=== PATIENT | male | born 1995 ===

== ENCOUNTER 2018-03-17 23:00 | Emergency (ER) | payer OTHER ==
--- NOTE | 2018-03-18 00:35 | ED PDOC ---
Upper Extremity Pain/Injury Time Seen by Provider: 03/18/18 00:02 Chief Complaint (Nursing): Finger,Hand,&Wrist Chief Complaint (Provider): Finger Injury History Per: Patient History/Exam Limitations: no limitations Onset/Duration Of Symptoms: Days (x7) Current Symptoms Are (Timing): Still Present Additional Complaint(s): 22 year old male presented to ED for evaluation of injury on the right second digit. 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 PMD: Dr. Bonita Franks Past Medical History Reviewed: Historical Data, Nursing Documentation, Vital Signs Vital Signs: Last Vital Signs Temp 98 F 03/17/18 23:26 Pulse 78 03/17/18 23:26 Resp 18 03/17/18 23:26 BP 133/84 03/17/18 23:26 Pulse Ox 99 03/17/18 23:26 - Medical History PMH: No Chronic Diseases - Surgical History Surgical History: No Surg Hx - Family History Family History: States: Unknown Family Hx - Social History Current smoker - smoking cessation education provided: No Alcohol: Social Drugs: Denies - Home Medications Home Medications: Ambulatory Orders Medication Instructions Recorded Ibuprofen [Motrin Tab] 600 mg PO Q6 PRN #24 tab 03/18/18 - Allergies Allergies/Adverse Reactions: Allergies Allergy/AdvReac Type Severity Reaction Status Date / Time No Known Allergies Allergy Verified 03/18/18 00:09 Review of Systems ROS Statement: Except As Marked, All Systems Reviewed And Found Negative Musculoskeletal: Positive for: Other (Right 2nd digit finger injury) Physical Exam - Reviewed Nursing Documentation Reviewed: Yes Vital Signs Reviewed: Yes - Physical Exam Comments: GENERAL APPEARANCE: Patient is awake, alert, oriented x 3, in no acute distress. Resting comfortably. SKIN: Warm, dry; (-) cyanosis. NECK: Supple, FROM ENT: Mucus membranes moist. HEART AND CARDIOVASCULAR: (-) irregularity; (-) murmur, (-) gallop. CHEST AND RESPIRATORY: (-) rales, (-) rhonchi, (-) wheezes; breath sounds equal. Speaking in full sentences, respirations even and nonlabored. NEURO AND PSYCH: Mental status as above. Gait steady, speech clear. RIGHT 2ND PROXIMAL PHALANX: (+) minimal tenderness (+) full ROM of digit, (+) cap refill intact, (-) ecchymosis, (-) skin break (-) swelling. Remainder of digits of right hand nontender with FROM. WRIST: (+) Full ROM (-) Tenderness, ( -) swelling, (-) deformity. (-) snuff-box tenderness. (-) distal NV deficit. - ECG O2 Sat by Pulse Oximetry: 99 (RA) Pulse Ox Interpretation: Normal Medical Decision Making Medical Decision Making: Initial Impression: Finger injury Initial Plan: Ibuprofen 600mg PO X-ray right hand Re-evalaution 00:20 X-ray No acute findings (-) fracture (-) dislocation as read by Reggie MARQUES Aluminum finger splint placed on finger. Upon reevaluation, patient is neurovascularly intact after placement. 00:45 On re-evaluation, patient reports improvement of symptoms. On exam, patient remains AAOx3, in no acute distress. Lungs clear to auscultation, cardiac RRR, repeat neuro exam shows no focal findings. VSS, stable for discharge. Lab/Diagnostic results d/w the patient in great detail. Diagnosis of acute finger pain/sprain d/w the patient. Based on history, exam and diagnostic results, plan will be for outpatient follow up. Patient instructed to follow-up with pmd / referral provided / the clinic in 1- 2 days without fail. Advised to take medication as prescribed. Return to the emergency room at any time for any new or worsening symptoms. Patient states he fully agrees with and understands discharge instructions. States that he agrees with the plan and disposition. Verbalized and repeated discharge instructions and plan. I have given the patient opportunity to ask any additional questions. Scribe Attestation: Documented by Paul Núñez acting as a scribe for Jazzmine LARA. Provider Scribe Attestation: All medical record entries made by the Scribe were at my direction and personally dictated by me. I have reviewed the chart and agree that the record accurately reflects my personal performance of the history, physical exam, medical decision making, and the department course for this patient. I have also personally directed, reviewed, and agree with the discharge instructions and disposition. Disposition - Clinical Impression Clinical Impression: Finger sprain - Patient ED Disposition Is Patient to be Admitted: No Counseled Patient/Family Regarding: Studies Performed, Diagnosis, Need For Followup, Rx Given - Disposition Referrals: Nathan Heard MD [Medical Doctor] - Disposition: Routine/Home Disposition Time: 00:48 Condition: STABLE Additional Instructions: FOLLOW UP WITH PMD/HAND SPECIALIST FOR FURTHER EVALUATION WITHIN THE WEEK. REFERRAL PROVIDED FOR HAND SPECIALIST. RETURN TO ED WITH ANY NEW OR WORSENING SYMPTOMS. TAKE IBUPROFEN NEEDED FOR DISCOMFORT. Prescriptions: Ibuprofen [Motrin Tab] 600 mg PO Q6 PRN #24 tab PRN Reason: Pain, Moderate (4-7) Instructions: Finger Sprain (DC), Common Finger Injuries (DC) Forms: [facility] (Mexican) Print Language: KENYAN - POA Present On Arrival: None
[2018-03-18 01:00] VITALS: BP 126/78; PULSE 79; RESP 17; TEMP 98.1
[2018-03-18 04:01] VITALS: O2SAT 99
--- NOTE | 2018-03-18 09:05 | RAD ---
PROCEDURE: Right Hand Radiographs. HISTORY: crush injury COMPARISON: None. FINDINGS: BONES: No acute fracture. JOINTS: Unremarkable. SOFT TISSUES: Normal. OTHER FINDINGS: None. IMPRESSION: No demonstrated fracture or dislocation.
== END 2018-03-18 00:55 | disposition home or self-care (01) ==
LOC: H.ER 23:00
DX: S63.611A Unspecified sprain of left index finger, initial encounter (principal); W23.0XXA Caught, crushed, jammed, or pinched between moving objects, initial encounter; Y99.0 Civilian activity done for income or pay

== ENCOUNTER 2018-04-01 04:30 | Emergency (ER) | payer OTHER ==
[2018-04-01] MEDS ORDERED: Sodium Chloride 0.9% 1,000 ML IV STA (05:00)
--- NOTE | 2018-04-01 05:03 | ED PDOC ---
HPI: Headache Time Seen by Provider: 04/01/18 04:47 Chief Complaint (Nursing): Headache Chief Complaint (Provider): headache History Per: Patient History/Exam Limitations: no limitations Onset/Duration Of Symptoms: Days (1) Current Symptoms Are (Timing): Still Present Quality: "Pain" Associated Symptoms: Photophobia, Nausea, Vomiting Additional Complaint(s): 22 y/o male presents for evaluation of headache x 1 day. Associated photophobia , nausea and vomiting x 2. Patient states headache located on right side, behind eye and ear. Denies fever, dizziness, extremity numbness/weakness, vision changes, nasal congestion, neck/back pain, chest pain, shortness of breath, palpitations. Past Medical History Reviewed: Historical Data, Nursing Documentation, Vital Signs Vital Signs: Last Vital Signs Temp 98.0 F 04/01/18 04:38 Pulse 104 H 04/01/18 04:38 Resp 17 04/01/18 04:38 BP 139/76 04/01/18 04:38 Pulse Ox 99 04/01/18 04:38 - Medical History PMH: No Chronic Diseases - Surgical History Surgical History: No Surg Hx - Family History Family History: States: Unknown Family Hx - Living Arrangements Living Arrangements: With Family - Home Medications Home Medications: Ambulatory Orders Medication Instructions Recorded Ibuprofen [Motrin Tab] 600 mg PO Q6 PRN #24 tab 03/18/18 - Allergies Allergies/Adverse Reactions: Allergies Allergy/AdvReac Type Severity Reaction Status Date / Time No Known Allergies Allergy Verified 03/18/18 00:09 Review of Systems ROS Statement: Except As Marked, All Systems Reviewed And Found Negative Gastrointestinal: Positive for: Nausea Neurological: Positive for: Headache Physical Exam - Reviewed Nursing Documentation Reviewed: Yes Vital Signs Reviewed: Yes - Physical Exam Appears: Positive for: Well, Non-toxic, Uncomfortable Head Exam: Positive for: ATRAUMATIC, NORMAL INSPECTION, NORMOCEPHALIC Skin: Positive for: Normal Color Eye Exam: Positive for: Normal appearance, EOMI, PERRL ENT: Positive for: Normal ENT Inspection Cardiovascular/Chest: Positive for: Regular Rate, Rhythm Respiratory: Positive for: Normal Breath Sounds Gastrointestinal/Abdominal: Positive for: Normal Exam Back: Positive for: Normal Inspection Extremity: Positive for: Normal ROM Neurologic/Psych: Positive for: Alert, Oriented. Negative for: Motor/Sensory Deficits - Laboratory Results Result Diagrams: 04/01/18 05:26 - ECG O2 Sat by Pulse Oximetry: 99 Disposition - Clinical Impression Clinical Impression: Headache - Patient ED Disposition Is Patient to be Admitted: No - Disposition Disposition Time: 06:00 Condition: STABLE Forms: [facility] (Senegalese) Patient Signed Over To: Shae Shields Handoff Comments: pending labs, re-eval
[2018-04-01 05:37] LABS: BASO % 0.1 % (0.0-2.0); HEMOGLOBIN 14.6 g/dL (12.0-18.0); LYMPH # 0.7 K/uL (1.0-4.3); LYMPH % 5.4 % (20.0-40.0); MEAN CELL VOLUME 86.5 fl (80.0-94.0); MEAN CORPUSCULAR HEMOGLOBIN 30.1 pg (27.0-31.0); MEAN CORPUSCULAR HGB CONC 34.8 g/dL (33.0-37.0); MEAN PLATELET VOLUME 9.4 fl (7.2-11.7); MONO # 0.9 K/uL (0.0-0.8); MONO % 6.5 % (0.0-10.0); NEUT # 12.2 K/uL (1.8-7.0); PLATELET COUNT 239 K/uL (130-400); RBC 4.84 Mil/uL (4.40-5.90); RED CELL DISTRIBUTION WIDTH 13.1 % (11.5-14.5); WHITE BLOOD COUNT 13.9 K/uL (4.8-10.8)
--- NOTE | 2018-04-01 05:54 | ED PDOC ---
- Laboratory Results Result Diagrams: 04/01/18 05:26 04/01/18 05:26 - ECG O2 Sat by Pulse Oximetry: 99 (RA) Pulse Ox Interpretation: Normal Medical Decision Making Medical Decision Making: Time: 6:00 Patient was signed out to me by Christina Delvalle PA-C, pending labs and reevaluation. 6:[address] Head. 7:00 Patient will be signed out to Dr. Anthony pending CT Head. Scribe Attestation: Documented by, Lizet Saeed acting as a scribe for Shae Shields MD. Provider Scribe Attestation: All medical record entries made by the Scribe were at my direction and personally dictated by me. I have reviewed the chart and agree that the record accurately reflects my personal performance of the history, physical exam, medical decision making, and the department course for this patient. I have also personally directed, reviewed, and agree with the discharge instructions and disposition. Disposition - Clinical Impression Clinical Impression: Headache, Sinusitis - POA Present On Arrival: None - Disposition Referrals: [facility] [Outside] - 04/04/18 Disposition: Transfer of Care Disposition Time: 07:00 Condition: STABLE Additional Instructions: Return right away for further evaluation and a lumbar puncture to evaluate for meningitis. You are refusing currently and are aware of possible or decreased functioning from it. Prescriptions: Doxycycline Hyclate 100 mg PO BID 7 Days capsule Ibuprofen [Motrin] 600 mg PO TID 7 Days tab Instructions: Sinusitis in Adults, Headache, Adult Forms: [facility] [facility] (Kyrgyz), [facility] ED School/Work Excuse Patient Signed Over To: Kevon Anthony
[2018-04-01 05:57] LABS: ALB/GLOB RATIO 1.3 (1.0-2.1); ALBUMIN 4.5 g/dL (3.5-5.0); ALT/SGPT 25 U/L (21-72); AST/SGOT 24 U/L (17-59); BLOOD UREA NITROGEN 12 mg/dl (9-20); CALCIUM 9.9 mg/dL (8.4-10.2); GFR AFRICAN-AMERICAN > 60; GFR NON-AFRICAN AMERICAN > 60
[2018-04-01 07:39] VITALS: RESP 19; TEMP 97
--- NOTE | 2018-04-01 07:49 | CT ---
EXAM: CT Head Without Intravenous Contrast CLINICAL HISTORY: 22 years old, male; Pain; Headache; Tension TECHNIQUE: Axial computed tomography images of the head/brain without intravenous contrast. All CT scans at this facility use one or more dose reduction techniques, viz.: automated exposure control; ma/kV adjustment per patient size (including targeted exams where dose is matched to indication; i.e. head); or iterative reconstruction technique. Coronal and sagittal reformatted images were created and reviewed. COMPARISON: No relevant prior studies available. FINDINGS: Brain: Unremarkable. No hemorrhage. No significant white matter disease. No edema. Ventricles: Unremarkable. No ventriculomegaly. Bones/joints: Unremarkable. No acute fracture. Soft tissues: Unremarkable. Sinuses: There is diffuse mucoperiosteal thickening and fluid in the ethmoid and sphenoid sinuses, consistent with chronic sinusitis. Mastoid air cells: Unremarkable as visualized. No mastoid effusion. IMPRESSION: No acute intracranial findings. Sinusitis.
--- NOTE | 2018-04-01 07:53 | ED PDOC ---
- Laboratory Results Result Diagrams: 04/01/18 05:26 04/01/18 05:26 Interpretation Of Abn Labs: 13.9 wbc - ECG O2 Sat by Pulse Oximetry: 98 - CT Scan/US ct Other Rad Studies (CT/US): Read By Radiologist Other Rad Interpretation: sinusitis - Progress ED Course And Treament: 700: Took over care from Dr. Shields. Fu on Ct head. Here with headache. AAOx3. 904: Stable. AAOx3. Pain free. Tolerated po. Does not want a LP for evaluation of meningitis. Aware of possible or decreased functioning from it. Will return if not feeling well or pain returns. Will tx for sinusitis. No neck pain, nausea, vomit, vision changes. Disposition Counseled Patient/Family Regarding: Studies Performed, Diagnosis, Need For Followup, Rx Given - Clinical Impression Clinical Impression: Headache, Sinusitis - POA Present On Arrival: None - Disposition Referrals: [facility] [Outside] - 04/04/18 Disposition: Routine/Home Disposition Time: 09:10 Condition: STABLE Additional Instructions: Return right away for further evaluation and a lumbar puncture to evaluate for meningitis. You are refusing currently and are aware of possible or decreased functioning from it. Prescriptions: Doxycycline Hyclate 100 mg PO BID 7 Days capsule Ibuprofen [Motrin] 600 mg PO TID 7 Days tab Instructions: Sinusitis in Adults, Headache, Adult Forms: [facility] (Spanish), [facility] ED School/Work Excuse
[2018-04-01 08:05] LABS: LYMPHOCYTE 5 % (20-50); MONOCYTE 7 % (0-10); NEUTROPHIL 88 % (42-75); PLATELET ESTIMATE NORMAL (NORMAL); TOTAL CELLS COUNTED 100
[2018-04-01 09:25] VITALS: BP 120/76; PULSE 78
[2018-04-03 20:18] VITALS: O2SAT 99
== END 2018-04-01 09:25 | disposition home or self-care (01) ==
LOC: H.ER 04:30
DX: R51 Headache (principal); J32.9 Chronic sinusitis, unspecified
CPT/HCPCS: 70450; 80053; 85025; 96374; 99285; J1885; J2765; J7030